=== PATIENT | male | born 1945 | race Caucasian/White ===

== ENCOUNTER 2025-05-13 09:27 | Outpatient (CLI) | payer MEDICARE, SELFPAY | END 2025-05-13 09:28 | disposition home or self-care (01) | LOC: NFLDREF 05-16 09:04 | PROVIDERS: Visit Provider Family Medicine | DX: E03.9 Hypothyroidism, unspecified (principal); Z13.29 Encounter for screening for other suspected endocrine disorder; Z13.1 Encounter for screening for diabetes mellitus; Z00.00 Encounter for general adult medical examination without abnormal findings; E78.5 Hyperlipidemia, unspecified | CPT/HCPCS: 80053; 80061; 84439; 84443 ==